=== PATIENT | male | born 1995 ===

== ENCOUNTER 2017-09-22 02:02 | Emergency (ER) | payer OTHER, SELFPAY ==
--- NOTE | 2017-09-22 10:16 | CT ---
PRELIMINARY REPORT/[facility]/EMERGENCY AFTER HOURS PROCEDURE: EXAM: CT Cervical Spine Without Intravenous Contrast CLINICAL HISTORY: 22 years old, male; Injury or trauma; Fall; Initial encounter; Abrasion; Patient HX: ; Er 22; 22 yo m here for ETOH intoxication. Pt was found at a bar with friends. Friends note that they have been dri nking all day and had a lot to drink tonight. Pt was walking through a parking lot and fell and hit h is head. Pt is able to respond upon arrival but very slow to respond and slurring speech. TECHNIQUE: Axial computed tomography images of the cervical spine without intravenous contrast. Coronal and sagittal reformatted images were created and reviewed. COMPARISON: No relevant prior studies available. FINDINGS: On axial CT images, no definite acute fracture is visible. Sagittal and coronal reconstructions show no fracture or subluxation. No definite/significant disc herniation by CT, MRI could be more sensitive if clinically indicated. IMPRESSION: No definite acute fracture or subluxation by CT. Other findings discussed above. Thank you for allowing us to participate in the care of your patient. Dictated and Authenticated by: Aquilino Pascual MD 09/22/2017 2:58 AM Central Time ([place] & [place]) FINAL REPORT EMERGENCY AFTER HOURS CT CERVICAL SPINE PERFORMED WITHOUT CONTRAST ENHANCEMENT: Date: 09/22/17 HISTORY: Neck pain status post fall. FINDINGS: The vertebral bodies are normal in height. Disc spaces all appear well preserved. The facets appear t o be in normal alignment. There is no evidence of canal or foraminal stenosis. There is no CT evidenc e of fracture. IMPRESSION: No CT evidence of fracture of the cervical spine. This report is in agreement with the preliminary report issued by [facility]. POS: [facility]
--- NOTE | 2017-09-22 10:18 | CT ---
PRELIMINARY REPORT/[facility]/EMERGENCY AFTER HOURS PROCEDURE: EXAM: CT Head Without Intravenous Contrast CLINICAL HISTORY: 22 years old, male; Injury or trauma; Fall; Initial encounter; Abrasion; Not specified; Patient HX: ; Er 22; 22 yo m here for ETOH intoxication. Pt was found at a bar with friends. Friends note that the y have been drinking all day and had a lot to drink tonight. Pt was walking through a parking lot and fell and hit his head. Pt is able to respond upon arrival but very slow to respond and slurring spee ch. TECHNIQUE: Axial computed tomography images of the head/brain without intravenous contrast. COMPARISON: No relevant prior studies available. FINDINGS: No definite acute skull fracture. Included paranasal sinuses are essentially clear. No acute intracranial hemorrhage or mass effect. Ventricle size is normal for age. No definite acute infarct by CT. IMPRESSION: No acute intracranial bleed or mass effect. Thank you for allowing us to participate in the care of your patient. Dictated and Authenticated by: Aquilino Pascual MD 09/22/2017 2:53 AM Central Time ([place] & [place]) FINAL REPORT EMERGENCY AFTER HOURS CT OF BRAIN PERFORMED WITHOUT CONTRAST ENHANCEMENT: Date: 09/22/17 HISTORY: Head injury, status post fall. FINDINGS: The ventricular and cisternal system is within normal limits. There are no signs of intracerebral hem orrhage or extra-axial fluid collections. The mastoid air cells and visualized sinuses are clear. IMPRESSION: No acute intracranial abnormalities. This report is in agreement with the preliminary report issued by [facility]. POS: [facility]
== END 2017-09-22 03:10 | disposition home or self-care (01) ==
LOC: ERS 02:02
DX: S09.90XA Unspecified injury of head, initial encounter (principal); F10.129 Alcohol abuse with intoxication, unspecified; Z79.899 Other long term (current) drug therapy; Y93.01 Activity, walking, marching and hiking; Y90.8 Blood alcohol level of 240 mg/100 ml or more; W18.30XA Fall on same level, unspecified, initial encounter
CPT/HCPCS: 36415; 70450; 72125; 80307; 96360